=== PATIENT | male | born 2000 | race Hispanic/Latino ===

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

== ENCOUNTER 2023-07-07 21:13 | Emergency (ER) | payer SELFPAY | END 2023-07-07 23:41 | disposition left against medical advice (07) | LOC: CSHERS 21:13 | DX: Z53.21 Procedure and treatment not carried out due to patient leaving prior to being seen by health care provider (principal) ==